=== PATIENT | female | born 1955 | race Caucasian/White ===

== ENCOUNTER → 2018-05-27 | Outpatient (CLI) | payer OTHER | LOC: M.RAD 13:12 | DX: Z12.31 Encounter for screening mammogram for malignant neoplasm of breast (principal) ==

== ENCOUNTER → 2018-06-09 | Outpatient (CLI) | payer OTHER ==
--- NOTE | 2018-06-10 14:15 | SLEEP ---
[address] [address] SLEEP STUDY REPORT Name: LIBORIO BALL Room: [facility]#: [id number] Admission: 06/09/18 Attend Phys: Samantha. AYSE Manzanares Discharge: Date of : 53 Report #: [id number] THIS REPORT FOR: //name// CC: Dania Patel This study has been reviewed in its entirety by a board certified sleep specialist DATE OF SERVICE: 06/09/2018 ATTENDING PHYSICIAN: Dr. Dania Patel. The patient is 62 years old who weighs 182 pounds with a BMI of 38. The patient's Julian score was 9. The patient underwent split night study at [facility]. During the night study, the patient spent 426 minutes in bed and slept for 325 minutes with a sleep efficiency of 76%. Sleep latency was 22.1 minutes with a REM latency of 177 minutes. Overall, sleep architecture showed normal stage 1, stage 2 sleep, increased N3 sleep and normal REM sleep. During the initial diagnostic portion of the study, the patient slept for 129 minutes. During that time, there were no apneas, but 35 hypopneas. The patient's apnea hypopnea index was 16.3 per hour with a REM index of 91 per hour and a supine index of 16.3 per hour as well. EKG monitoring revealed an average heart rate of 90 beats per minute with a maximum of 102 beats per minute. No sustained arrhythmias observed. PLMs were seen at an index of 39 per hour and 11 per hour caused EEG arousals. Nocturnal oximetry study during the diagnostic portion revealed an average oxygen saturation of 91% with a lowest of 75%. 26 minutes were spent in oxygen saturation less than 89%. The patient met the criteria for CPAP initiation. The patient could not tolerate the CPAP, as a result was switched to BiPAP at 8/4. The BiPAP pressure was increased to 15/11. However, best results were seen at a BiPAP pressure of 10/5. The patient slept for 58.7 minutes. The patient had 27 minutes of REM sleep. The patient had supine sleep as well. The patient's AHI was only 3.1 per hour and oxygen saturation remained above 88%. The patient tolerated the BiPAP well. IMPRESSION: 1. Moderate sleep apnea-hypopnea syndrome with [place] [id number] SLEEP STUDY REPORT Name: LIBORIO BALL CHUCK Room: [facility]#: [id number] Admission: 06/09/18 Attend Phys: Samantha. AYSE Manzanares Discharge: Date of : 53 Report #: [id number] movement sleep. Total apnea hypopnea index 16 per hour with a rapid eye movement apnea hypopnea index of 91 per hour. 2. Nocturnal hypoxia secondary to obstructive sleep apnea, but resolved with BiPAP. 3. Moderate periodic limb movements. RECOMMENDATION: 1. BiPAP at a pressure of 10/5 completely eliminated the patient's sleep apnea and should be used on a nightly basis. 2. Follow up in 4-6 weeks to assess compliance with BiPAP and to document clinical improvement. 3. Weight loss is strongly advised. 4. Avoid [employer] depressants. 5. Cautioned regarding driving until symptoms of sleep apnea resolved with the use of BiPAP. 6. The patient should also be further evaluated for symptoms of restless legs during the day and if present, it can be treated with dopaminergic agonist agents. <ELECTRONICALLY SIGNED> By: Tiburcio Shine MD 06/10/18 1415 1055 [id number] Shine MD /nt
== END ==
LOC: M.SLEEPLAB 19:22
DX: G47.33 Obstructive sleep apnea (adult) (pediatric) (principal); G47.61 Periodic limb movement disorder; R09.02 Hypoxemia